=== PATIENT | female | born 1990 | race Caucasian/White ===

== ENCOUNTER 2017-09-14 21:27 | Emergency (ER) | payer SELFPAY ==
[~2017-09-14] VITALS: Ht 157.5 cm; Wt 65.0 kg
[2017-09-14 21:57] VITALS: Ht 157.5 cm; Wt 65.0 kg
== END 2017-09-15 01:55 | disposition left against medical advice (07) ==
LOC: FTE 21:27
DX: Z53.21 Procedure and treatment not carried out due to patient leaving prior to being seen by health care provider (principal)

== ENCOUNTER 2018-06-04 17:32 | Inpatient (IN) | END 2018-06-05 18:00 | disposition home or self-care (01) | DRG 742 ==

== ENCOUNTER 2018-08-09 22:03 | Inpatient (IN) | END 2018-08-12 16:35 | DRG 917 ==